=== PATIENT | male | born 1945 | race Caucasian/White ===

== ENCOUNTER 2019-09-12 08:39 | Day surgery (SDC) | payer MEDICARE, BC ==
[2019-09-12] MEDS: Lactated Ringers 1,000 ML IV SCH (09:05)
[2019-09-12] MEDS ORDERED: fentaNYL 100 MCG/2 ML SDV ONE (09:51)
[2019-09-12] MEDS ORDERED: Midazolam 1 MG/ML 2 ML SDV ONE (09:51)
[2019-09-12] MEDS ORDERED: Propofol 200 MG/20 ML SDV ONE (09:51)
[2019-09-12] MEDS: Ampicillin 2 GM in Sodium Chloride 0.9% 100 ML IV ONE (10:17)
[2019-09-12 11:56] VITALS: BP 133/80; PULSE 61
--- NOTE | 2019-09-13 08:05 | OR ---
DATE OF PROCEDURE: 09/12/2019 SURGEON: Chai Stoll MD PREOPERATIVE DIAGNOSIS: History of tubular adenomas x2. POSTOPERATIVE DIAGNOSES: History of tubular adenomas x2, diverticulosis. PROCEDURE: Colonoscopy to the cecum. ANESTHESIA: IV anesthesia with monitored anesthesia care. INDICATION: This 74-year-old white male is here for a colonoscopy because of a history of a couple of tubular adenomas removed 3 years ago. I counseled him for the procedure including risks and alternatives and he gave his informed consent to proceed. DESCRIPTION OF PROCEDURE: The patient was placed in the left lateral decubitus position. IV anesthesia was administered by the Anesthesia Service. Time-out was held. A rectal exam was performed, which was unremarkable. The flexible video Olympus colonoscope was introduced through his anus, up his rectum, and out his colon all way to the cecum. En route, we saw a few scattered left-sided diverticula. There was no bleeding or inflammation associated with them. Once the cecum was reached, the scope was slowly withdrawn examining the mucosa throughout. No mucosal abnormalities were noted other than the previously mentioned diverticula. There were no neoplastic lesions seen. Scope was retroflexed in the rectum with the distal rectum appearing unremarkable. The scope was straightened and removed. He tolerated the procedure well. Chai Stoll MD /[id number]
== END 2019-09-12 12:05 | disposition home or self-care (01) ==
LOC: JP.SDS 08:39
PROVIDERS: ATTEND Surgery
DX: Z12.11 Encounter for screening for malignant neoplasm of colon (principal); K57.30 Diverticulosis of large intestine without perforation or abscess without bleeding; I10 Essential (primary) hypertension; I25.10 Atherosclerotic heart disease of native coronary artery without angina pectoris; Z86.010 Personal history of colon polyps
CPT/HCPCS: J0290; J2250; J2704; J3010; J7030; J7120

== ENCOUNTER 2022-02-13 07:28 | Emergency (ER) | payer MEDICARE ==
[2022-02-13 07:42] VITALS: BP 135/75; PULSE 62
== END 2022-02-13 08:24 | disposition home or self-care (01) ==
LOC: JP.ED 07:28
DX: R04.0 Epistaxis (principal); I10 Essential (primary) hypertension; E66.9 Obesity, unspecified; Z68.39 Body mass index [BMI] 39.0-39.9, adult; Z79.82 Long term (current) use of aspirin; Z79.84 Long term (current) use of oral hypoglycemic drugs; Z79.899 Other long term (current) drug therapy
CPT/HCPCS: 99282; 99283

== ENCOUNTER 2022-03-05 19:52 | Emergency (ER) | payer MEDICARE ==
[2022-03-05 20:12] VITALS: BP 157/78; PULSE 66
[2022-03-05] MEDS ORDERED: Fluconazole 150 MG Tab PO ONE (20:26)
== END 2022-03-05 20:49 | disposition home or self-care (01) ==
LOC: JP.ED 19:52
DX: B35.6 Tinea cruris (principal); B37.42 Candidal balanitis; I10 Essential (primary) hypertension; E66.9 Obesity, unspecified; Z68.39 Body mass index [BMI] 39.0-39.9, adult; Z79.899 Other long term (current) drug therapy; Z79.82 Long term (current) use of aspirin; Z79.84 Long term (current) use of oral hypoglycemic drugs
CPT/HCPCS: 99282; A9270

== ENCOUNTER 2022-03-29 12:06 | Emergency (ER) | payer MEDICARE, BC ==
[2022-03-29 12:26] VITALS: BP 137/64; PULSE 63
== END 2022-03-29 13:18 | disposition other institution (70) ==
LOC: JP.ED 12:06
DX: H53.2 Diplopia (principal); H53.34 Suppression of binocular vision; I10 Essential (primary) hypertension; E66.9 Obesity, unspecified; Z68.38 Body mass index [BMI] 38.0-38.9, adult; Z79.899 Other long term (current) drug therapy
CPT/HCPCS: 99284